=== PATIENT | male | born 1970 | race American Indian/Alaskan Native ===

== ENCOUNTER 2021-02-18 17:06 | Emergency (ER) | payer SELFPAY ==
[2021-02-18] MEDS ORDERED: FAMOTIDINE 20 MG/2 ML INJ IV ONE (17:41)
[2021-02-18] MEDS ORDERED: methylPREDNISolone Sod Succinate 125 MG/2 ML INJ IV ONE (17:41)
--- NOTE | 2021-02-18 17:44 | Emergency Department Report ---
HPI - General Chief Complaint: Allergic Reaction Time Seen by Provider: 02/18/21 17:32 - HPI HPI: This is a 50-year-old male who presents to the emergency department via EMS from home with allergic reaction. Patient says that he was working outside and w onders if he could have been bitten by some ants or something. He went inside and was showering and suddenly became very itchy. He noticed hives throughout his arms and torso. He began having lip swelling with upper greater than lower. The patient also felt like his throat became itchy. The patient took 50 mg of Benadryl at home. He called EMS and the patient was given 0.2 mg of epinephrine subcu and a liter of fluid in route. At the time of my examination, the patient says that the hives and itching have resolved, as has the throat itching or discomfort, but he still has the lip swelling. No known allergies to any foods, medications, environment, or any known allergies. No past medical history and the patient does not take any medications daily. No recent travel or sick contacts at home. ED Past Medical Hx - Past Medical History Previous Medical History?: No - Surgical History Past Surgical History?: Yes Additional Surgical History: back - Social History Smoking Status: Light Tobacco Smoker Substance Use Type: None - Medications Home Medications: Home Medications Medication Instructions Recorded Confirmed Last Taken Type EPINEPHrine [Epipen 2-Chidi] 0.3 mg IJ ONCE PRN #1 auto.injct 02/18/21 Unknown Rx Famotidine [Pepcid] 20 mg PO BID #6 tablet 02/18/21 Unknown Rx predniSONE [Deltasone] 20 mg PO BID #6 tab 02/18/21 Unknown Rx ED Review of Systems ROS: Stated complaint: ALLERGIC REACTION Other details as noted in HPI Comment: All other systems reviewed and negative Constitutional: denies: chills, fever Eyes: denies: eye pain, vision change ENT: throat pain (itching), other (lip swelling). denies: ear pain Respiratory: denies: cough, shortness of breath Cardiovascular: denies: chest pain, palpitations Gastrointestinal: denies: abdominal pain, vomiting Genitourinary: denies: dysuria, discharge Musculoskeletal: denies: back pain, arthralgia Skin: rash (hives), pruritus Neurological: denies: headache, weakness Physical Exam - Physical Exam Vital Signs: Vital Signs 02/18/21 17:32 Temperature 98.7 F Pulse Rate 97 H Respiratory 18 Rate Blood Pressure 128/99 O2 Sat by Pulse 99 Oximetry Physical Exam: GENERAL: The patient is well-developed well-nourished. HENT: Normocephalic. Atraumatic. Patient has moist mucous membranes. EYES: Extraocular motions are intact. Pupils equal reactive to light bilaterally. There is angioedema of the lips with upper greater than lower. Oropharynx is clear. No swelling of the tongue or throat. No drooling or trismus. NECK: Supple. Trachea is midline. CHEST/LUNGS: Clear to auscultation. There is no respiratory distress noted. HEART/CARDIOVASCULAR: Regular. There is no tachycardia. There is no murmur. ABDOMEN: Abdomen is soft, nontender. Patient has normal bowel sounds. SKIN: Skin is warm and dry. NEURO: The patient is awake, alert, and oriented. The patient is cooperative. The patient has no focal neurologic deficits. Normal speech. MUSCULOSKELETAL: There is no tenderness or deformity. There is no limitation range of motion. ED Course Vital Signs 02/18/21 17:32 Temperature 98.7 F Pulse Rate 97 H Respiratory 18 Rate Blood Pressure 128/99 O2 Sat by Pulse 99 Oximetry ED Medical Decision Making - Medical Decision Making This patient presents after having an allergic reaction to an unknown allergen prior to presentation. The patient initially had pruritus, urticaria, and angioedema of the lips. At the time of my examination, after the patient took 50 of Benadryl and received subcutaneous epinephrine, the pruritus and urticaria have resolved. The angioedema does appear to be isolated to the lips as there is no tongue swelling, drooling, trismus, shortness of breath. Heart and lung sounds are normal to auscultation and the patient does not appear in any respiratory or acute distress. The patient was given IV fluid resuscitation, Solu-Medrol and Pepcid. He was reevaluated multiple times over more than 3 hours and has had significant improvement of the angioedema. There is only minor lip swelling. Vital signs of been reassuring throughout his ED course including being afebrile. For these reasons the patient appears safe for discharge home at this time. He has been placed on a course of steroids, Pepcid, Benadryl and has been given EpiPen's. The patient understands to use the EpiPen with any worsening angioedema that involves the tongue or throat, anaphylaxis. He also understands that if he has to use the EpiPen, that he should call 911 or go to the closest emergency department immediately afterwards. Critical Care Time: No Critical care attestation.: If time is entered above; I have spent that time in minutes in the direct care of this critically ill patient, excluding procedure time. ED Disposition Clinical Impression: Angioedema Qualifiers: Encounter type: initial encounter Qualified Code(s): T78.3XXA - Angioneurotic edema, initial encounter Allergic reaction Qualifiers: Encounter type: initial encounter Qualified Code(s): T78.40XA - Allergy, unspecified, initial encounter Disposition: HOME / SELF CARE / HOMELESS Is pt being admited?: No Condition: Stable Instructions: Angioedema, How to Use an Auto-Injector Pen Additional Instructions: Please follow-up with a primary care physician in the next few days. I am prescribing you a course of steroids and Pepcid, to take along with your [id number] Benadryl. I am also giving you a prescription for an EpiPen. The EpiPen should be used with any swelling of the tongue, throat, difficulty swallowing, shortness of breath, related to your allergic reaction. If you have to use the EpiPen, call 911 or go to the closest emergency department immediately afterwards. Return to the emergency department with any worsening of your symptoms, new or concerning symptoms not addressed during this current emergency department visit, or with any acute distress. Prescriptions: predniSONE [Deltasone] 20 mg PO BID #6 tab EPINEPHrine [Epipen 2-Chidi] 0.3 mg IJ ONCE PRN #1 auto.injct PRN Reason: Anaphylaxis Famotidine [Pepcid] 20 mg PO BID #6 tablet Referrals: PRIMARY CARE, [Primary Care Provider] - 2-3 Days Time of Disposition: 20:07
[2021-02-18 18:40] VITALS: BP 137/95
== END 2021-02-18 20:34 | disposition home or self-care (01) ==
LOC: ED 17:06
DX: T78.3XXA Angioneurotic edema, initial encounter (principal); T78.40XA Allergy, unspecified, initial encounter; F17.200 Nicotine dependence, unspecified, uncomplicated; Z79.899 Other long term (current) drug therapy; X58.XXXA Exposure to other specified factors, initial encounter
CPT/HCPCS: 96374; 96375; 99284; J2930